=== PATIENT | male | born 2000 | race American Indian/Alaskan Native ===

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

== ENCOUNTER 2020-06-20 16:03 | Emergency (ER) | payer OTHER ==
--- NOTE | 2020-06-20 16:47 | EDM.PDOC ---
ED HPI GENERAL MEDICAL PROBLEM - General Chief Complaint: Lower Extremity Injury/Pain Stated Complaint: L FOOT PAIN Time Seen by Provider: 06/20/20 16:12 Source of Information: Reports: Patient History Limitations: Reports: No Limitations - History of Present Illness INITIAL COMMENTS - FREE TEXT/NARRATIVE: Patient is a 19-year-old male who presents to the emergency department with complaints of pain to the ventral lateral aspect of his left foot that started yesterday. He states he was running and playing basketball yesterday. He denies any known injury, however a few hours after he stopped playing he developed a dull ache in the ventrolateral aspect of his left foot. He has been able to ambulate without difficulty, however states it is painful. He has not taken anything for pain. Denies history of previous injury to this foot. Left Foot Pain Score (Numeric/FACES): 8 - Related Data Allergies Allergy/AdvReac Type Severity Reaction Status Date / Time No Known Allergies Allergy Verified 06/20/20 16:13 Home Meds: Home Meds Naproxen [Naprosyn] 500 mg PO Q12HR #10 tab 06/20/20 [Rx] Past Medical History - Past Health History Medical/Surgical History: Denies Medical/Surgical History Social & Family History - Family History Family Medical History: Noncontributory - Tobacco Use Smoking Status *Q: Never Smoker Second Hand Smoke Exposure: Yes - Caffeine Use Caffeine Use: Reports: Energy Drinks - Recreational Drug Use Recreational Drug Use: No Review of Systems - Review of Systems Review Of Systems: See Below Constitutional: Reports: No Symptoms Eyes: Reports: No Symptoms Ears: Reports: No Symptoms Nose: Reports: No Symptoms Mouth/Throat: Reports: No Symptoms Respiratory: Reports: No Symptoms Cardiovascular: Reports: No Symptoms GI/Abdominal: Reports: No Symptoms Genitourinary: Reports: No Symptoms Musculoskeletal: Reports: Foot Pain Skin: Reports: No Symptoms Neurological: Reports: No Symptoms Psychiatric: Reports: No Symptoms ED EXAM, GENERAL - Physical Exam Exam: See Below Exam Limited By: No Limitations General Appearance: Alert, WD/WN, No Apparent Distress Respiratory/Chest: No Respiratory Distress, Lungs Clear, Normal Breath Sounds, No Accessory Muscle Use, Chest Non-Tender Cardiovascular: Normal Peripheral Pulses, Regular Rate, Rhythm, No Edema, No Gallop, No JVD, No Murmur, No Rub Extremities: Normal Inspection, Normal Range of Motion, Other (Mild tenderness to palpation over the ventral lateral aspect of the left foot. No obvious swelling, ecchymosis, or deformity noted.) Neurological: Alert, Oriented, CN II-XII Intact, Normal Cognition, Normal Gait, Normal Reflexes, No Motor/Sensory Deficits Psychiatric: Normal Affect, Normal Mood Skin Exam: Warm, Dry, Intact, Normal Color, No Rash Course - Vital Signs Last Recorded V/S: Last Vital Signs Temp 98.6 F 06/20/20 16:09 Pulse 63 06/20/20 16:09 Resp 16 06/20/20 16:09 BP 121/71 06/20/20 16:09 Pulse Ox 100 06/20/20 16:09 - Orders/Labs/Meds Orders: Active Orders 24 hr Category Date Time Status Foot Comp Min 3V Lt [CR] Stat Exams 06/20/20 16:14 Taken - Re-Assessments/Exams Free Text/Narrative Re-Assessment/Exam: X-ray the left foot shows no abnormalities. Discussed with patient that he likely strained his foot while playing basketball. We will send a prescription for Naprosyn. Advised that if he still has pain after 1 week, I would recommend that he follow-up with podiatry. Discharge instructions as documented. Departure - Departure Time of Disposition: 16:44 Disposition: Home, Self-Care 01 Condition: Good Clinical Impression: Strain of foot, left Qualifiers: Encounter type: initial encounter Qualified Code(s): S96.912A - Strain of unspecified muscle and tendon at ankle and foot level, left foot, initial encounter - Discharge Information *PRESCRIPTION DRUG MONITORING PROGRAM REVIEWED*: No *COPY OF PRESCRIPTION DRUG MONITORING REPORT IN PATIENT LEONOR: No Prescriptions: Naproxen [Naprosyn] 500 mg PO Q12HR #10 tab Referrals: Demario Reyes II, DPM [Physician] - Forms: ED Department Discharge Additional Instructions: You were seen in the emergency department today for pain your left foot. X-rays were completed and found no signs of fracture. It is likely that you strained your foot while playing basketball. Recommend that you avoid activities that seem to aggravate your foot further. You may ice intermittently over the area for the next few days. A prescription for Naprosyn has been sent to the [facility] pharmacy. Take this medication as prescribed for the next 5 days to reduce the inflammation in the foot. If after 1 week you continue to have pain in this foot, I would recommend that you follow-up with podiatry. The number to schedule with Dr. Reyes is listed below. Return to the ER as needed. Sepsis Event Note (ED) - Evaluation Sepsis Screening Result: No Definite Risk - Focused Exam Vital Signs: Vital Signs Temp Pulse Resp BP Pulse Ox 06/20/20 16:09 98.6 F 63 16 121/71 100 - My Orders Last 24 Hours: My Active Orders 06/20/20 16:14 Foot Comp Min 3V Lt [CR] Stat - Assessment/Plan Last 24 Hours: My Active Orders 06/20/20 16:14 Foot Comp Min 3V Lt [CR] Stat
--- NOTE | 2020-06-21 07:53 | CR ---
Left foot: 4 views of the left foot were obtained. Comparison: No prior foot exam is available. Joint spaces are preserved. No fracture, dislocation or other bony abnormality is seen. Impression: 1. Nothing acute is appreciated on left foot exam. Diagnostic code #1 This report was dictated in MDT
== END 2020-06-20 16:55 | disposition home or self-care (01) ==
LOC: JD.ED 16:03
DX: S96.912A Strain of unspecified muscle and tendon at ankle and foot level, left foot, initial encounter (principal); Z77.22 Contact with and (suspected) exposure to environmental tobacco smoke (acute) (chronic); X58.XXXA Exposure to other specified factors, initial encounter
CPT/HCPCS: 73630-26-LT; 73630-LT; 99283; 99283-25

== ENCOUNTER 2023-01-07 07:08 | Emergency (ER) | payer OTHER | END 2023-01-07 12:40 | disposition home or self-care (01) | LOC: JD.ED 07:08 | DX: S06.0X1A Concussion with loss of consciousness of 30 minutes or less, initial encounter (principal); S02.85XA Fracture of orbit, unspecified, initial encounter for closed fracture; W50.1XXA Accidental kick by another person, initial encounter | CPT/HCPCS: 70450; 70450-26; 70486; 70486-26; 72125; 72125-26; 99283; 99284 ==